=== PATIENT | female | born 2000 | race Caucasian/White ===

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

== ENCOUNTER 2022-03-09 17:16 | Emergency (ER) | payer BC, OTHER ==
[~2022-03-09] VITALS: Ht 160 cm; Wt 49.8 kg
[2022-03-09 18:32] LABS: BILIRUBIN,URINE NEGATIVE (NEGATIVE); CLARITY,URINE CLEAR; COLOR,URINE YELLOW; GLUCOSE, URINE (UA) NEGATIVE (NEGATIVE); KETONES,URINE NEGATIVE (NEGATIVE); LEUKOCYTE ESTERASE ,URINE NEGATIVE (NEGATIVE); NITRITE,URINE NEGATIVE (NEGATIVE); PROTEIN,URINE NEGATIVE (NEGATIVE)
--- NOTE | 2022-03-09 18:38 | ED GI ---
General Chief Complaint: Rect Problems Stated Complaint: BLOOD IN STOOL Nursing Triage Note: PT PRESENTS TO ED VIA POV FROM HOME WITH COMPLAINTS OF INTERMITTENT RECTAL BLEEDING X 1 WEEK WITH BM'S. PT STATES HER BM YESTERDAY HAD A LOT OF BLOOD, HOWEVER TODAY IT APPEARED NORMAL. Source of Information: Patient Exam Limitations: No Limitations History of Present Illness Date Seen by Provider: Mar 09, 2022 Time Seen by Provider: 18:05 Initial Comments Pt to ER by POV with CC of BRBPR x 2 weeks intermittent. Went to in [place] today and no work up performed. Encouraged to present to the ER. LMP 7 days ago. On a Nuvaring and no other meds. No Hx of surgeries or scopes. No abd pain except occ 1/10 RLQ discomfort. No history of constipation Allergies and Home Medications Patient Home Medication List Home Medication List Reviewed: Yes Review of Systems Review of Systems Constitutional: No chills, No diaphoresis EENTM: No Blurred Vision, No Double Vision Respiratory: Denies Cough, Denies Orthopnea Cardiovascular: Denies Chest Pain, Denies Edema Gastrointestinal: Denies Abdomen Distended, Denies Abdominal Pain Genitourinary: Denies Burning, Denies Discharge Musculoskeletal: No back pain, No joint pain Skin: No pruritus, No rash All Other Systems Reviewed Negative Unless Noted: Yes Past Nywofve-Jkckuw-Ukidgx Hx Patient Social History Tobacco Use?: No Substance use?: No Alcohol Use?: Yes Alcohol Frequency: Couple times a week Pt feels they are or have been: No Physical Exam Vital Signs Vital Signs - First Documented 03/09/22 17:58 Temp 36.9 Pulse 63 Resp 16 B/P (MAP) 136/89 (105) Pulse Ox 100 Capillary Refill : Less Than 3 Seconds Height/Weight/BMI Height: '" Weight: lbs. oz. kg; 19.00 BMI Method: General Appearance: WD/WN, no apparent distress HEENT: PERRL/EOMI, pharynx normal Neck: full range of motion, normal inspection Respiratory: no respiratory distress, no accessory muscle use Cardiovascular: normal peripheral pulses, regular rate, rhythm Gastrointestinal: normal bowel sounds, non tender, soft Progress/Results/Core Measures Results/Orders Lab Results Laboratory Tests Test 03/09/22 18:22 Range/Units Urine Color YELLOW Urine Clarity CLEAR Urine pH 6.0 5-9 Urine Specific [place] >=1.030 1.016-1.022 Urine Protein NEGATIVE NEGATIVE Urine Glucose (UA) NEGATIVE NEGATIVE Urine Ketones NEGATIVE NEGATIVE Urine Nitrite NEGATIVE NEGATIVE Urine Bilirubin NEGATIVE NEGATIVE Urine Urobilinogen 0.2 < = 1.0 MG/DL Urine Leukocyte Esterase NEGATIVE NEGATIVE Urine RBC (Auto) NEGATIVE NEGATIVE Urine RBC 0-2 /HPF Urine WBC NONE /HPF Urine Squamous Epithelial Cells 0-2 /HPF Urine Crystals NONE /LPF Urine Bacteria TRACE /HPF Urine Casts NONE /LPF Urine Mucus NEGATIVE /LPF Urine Culture Indicated NO My Orders Orders - LAURYN IBRAHIM Ua Culture If Indicated (03/09/22 18:08) Urine Bedside (03/09/22 18:08) Vital Signs/I&O 03/09/22 03/09/22 17:58 18:47 Temp 36.9 Pulse 63 63 Resp 16 16 B/P (MAP) 136/89 (105) 136/89 Pulse Ox 100 100 Blood Pressure Mean: 105 Progress Progress Note : Time: 18:26 Progress Note DDx: IBD, IBS, Fissure, colitis, hemorrhoids, polyps. Will offer FOBT and rectal exam and refer to endoscopist. Offer the patient opportunity and she declined at this time to do a fecal occult blood test, rectal exam. This is appropriate as she can follow-up with the endoscopist to have this done. We also offered to do a hemoglobin check. She says she just had it checked in September and it was okay and she is asymptomatic and does not desire the test at this time which is also acceptable given her presentation. Departure Impression Primary Impression: Bright red blood per rectum Disposition: 01 HOME, SELF-CARE Condition: Stable Departure-Patient Inst. Decision time for Depature: 18:40 Referrals: EVA GILES,LOCAL PHYSICIAN (PCP) Primary Care Physician Patient Instructions: Bloody Stools, Adult (DC) Add. Discharge Instructions: Please call Dr. Giles, general surgery and request a follow-up appointment later this week. He will help do an appropriate examination and evaluation to determine whether endoscopy is appropriate for you. Return to the ER if you are having chest pain, shortness of air or other worrisome symptoms. All discharge instructions reviewed with patient and/or family. Voiced understanding. Copy Copies To 1: EVA GILES TITUS J Mar 09, 2022 18:38
[2022-03-09 18:47] VITALS: BP 136/89
[2022-03-09 18:54] LABS: BACTERIA,URINE TRACE /HPF; RBC,URINE 0-2 /HPF; SQUAMOUS EPITHELIAL CELL,UR 0-2 /HPF
== END 2022-03-09 18:47 | disposition home or self-care (01) ==
LOC: EDUNIT# 17:16 → ER 17:19
DX: K62.5 Hemorrhage of anus and rectum (principal)
CPT/HCPCS: 81000; 84703; 99282